=== PATIENT | male | born 1970 | race Native Hawaiian/Other Pacific Islander ===

== ENCOUNTER 2021-05-21 19:58 | Inpatient (IN) | payer BC, SELFPAY ==
[2021-05-21 20:20] VITALS: BP 116/83; PULSE 90; RESP 18; TEMP 37.1; O2SAT 97; BMI 24.8
--- NOTE | 2021-05-21 20:35 | ED.C_ITS ---
HPI - Psych General: Chief Complaint: Psychiatric Symptoms Stated Complaint: Psyciatric Symptons Time Seen by Provider: 05/21/21 20:25 Source: patient Mode of arrival: ambulatory Limitations: no limitations History of Present Illness: HPI Narrative: 50-year-old male has a history of bipolar disorder. He states he is been off his meds for quite some time and does not remember what he was taking he states he been having increasing racing thoughts and was driving today and just feeling get his mind straight he states he states been having very severe anger issues and homicidal thoughts. He states he feels like he does not get help he cannot harm himself or harm someone else. Associated symptoms: Reports depression and homicidal ideation Review of Systems Const: Denies: fever(s), chills, body aches or change in appetite Eyes: Denies: blurry vision or eye discomfort ENMT: Denies: throat pain or dental pain Card: Denies: chest pain Resp: Denies: dyspnea GI: Denies: abdominal pain, nausea, vomiting or diarrhea : Denies: dysuria Musc: Denies: neck pain or back pain Skin/Breast: Denies: rash Neuro: Denies: headache(s) Psych: Reports: anxiety, depression, mood swings and homicidal ideation David/Lymph: Denies: easy bruising All/Imm: Denies: urticaria PFS ED PFSH: Medical History (Updated 05/21/21 @ 21:42 by Red Chavira MD) Bipolar disorder Social History Substance/Drug Use: current Substance/Drug use frequency: other Physical Exam Const: COMMON NORMALS: patient oriented x3 and healthy appearing GENERAL APPEARANCE: anxious HENMT: COMMON NORMALS: normocephalic and atraumatic HEAD & SCALP: normocephalic and atraumatic Eye: COMMON NORMALS: Equal, round and reactive pupils present and EOMs intact bilaterally PUPIL: Yes Equal, round and reactive pupils present Neck/C-Spine: COMMON NORMALS: full ROM and supple Chest: COMMONS NORMALS: normal inspection of the chest and normal palpation of entire chest wall Resp: COMMON NORMALS: normal respiratory effort, No retractions, No use of accessory muscles and clear to auscultation bilaterally AUSCULTATION: clear to auscultation bilaterally Cardio: COMMON NORMALS: regular rate, regular rhythm and No murmurs present (Cardio) RATE: regular rate RHYTHM: regular rhythm GI: COMMON NORMALS: Normal to inspection, nondistended, normoactive bowel sounds present, Soft to palpation, non-tender and no masses PALPATION: Yes Soft to palpation Extremity: COMMON NORMALS: normal to inspection and full ROM Neuro: COMMON NORMALS: patient oriented x3, moves all extremities and no focal motor deficits Psych: COMMON NORMALS: mental status grossly normal and cooperative THOUGHT PROCESS: disorganized THOUGHT CONTENT: Yes Homicidality present Skin: COMMON NORMALS: no rashes or lesions noted and no wounds GENERAL SKIN EXAM: no rashes or lesions noted Course Vital Signs: Vital signs: Vital Signs Temperature 98.7 F 05/21/21 20:20 Pulse Rate 90 05/21/21 20:20 Respiratory Rate 18 05/21/21 20:20 Blood Pressure 116/83 05/21/21 20:20 Pulse Oximetry 97 05/21/21 20:20 MDM - Psych MDM Narrative: Medical decision making narrative: Patient presents with homicidal ideation along with history of bipolar disorder not been taking his meds patient placed on a 96-hour hold is medically cleared I spoke to psychiatrist and will admit. Lab Data: Labs: Lab Results 05/21/21 05/21/21 05/21/21 21:03 21:15 21:15 WBC 8.9 10^3/uL 10^3/ uL (4.0-10.0) RBC 4.95 10^6/uL 10^6 /uL (4.1-5.3) Hgb 15.0 g/dL g/dL (11.7-16.6) Hct 45.2 % % (42.0-52.0) MCV 91.3 fl fl (80-94) MCH 30.3 pg pg (28.0-34.0) MCHC 33.2 g/dL g/dL (30.0-36.0) RDW 12.5 % % (12.1-15.1) Plt Count 330 10^3/cmm 10^3 /cmm (130-400) MPV 9.7 fL fL (7.4-10.4) Neut % (Auto) 53.8 % % Lymph % (Auto) 37.1 % % [place] % (Auto) 6.0 % % Eos % (Auto) 2.0 % % Baso % (Auto) 0.9 % % Neut # (Auto) 4.77 10^3/uL 10^3 /uL (1.8-7.7) Lymph # (Auto) 3.3 10^3/uL 10^3/ uL (0.8-4.8) [place] # (Auto) 0.5 10^3/uL 10^3/ uL (0.2-0.9) Eos # (Auto) 0.2 10^3/uL 10^3/ uL (0.0-0.8) Baso # (Auto) 0.1 10^3/uL 10^3/ uL (0.0-0.1) Nucleated RBC % (a uto) 0 % % Nucleated RBCs # 0.0 /100WBC /100W BC Sodium 135 mmol/L L mmol /L (136-145) Potassium 3.8 mmol/L mmol/L (3.5-5.1) Chloride 100 mmol/L mmol/L (98-107) Carbon Dioxide 24 mmol/L mmol/L (22-29) Anion Gap 14.8 (5-19) BUN 14 mg/dL mg/dL (6-20) Creatinine 0.8 mg/dL mg/dL (0.7-1.2) GFR Calculation 101.9 mL/min mL/m in (90-130) Glucose 78 mg/dL mg/dL (65-115) Calculated Osmolal ity 279 mOsm/kg L mOs m/kg (285-295) Calcium 8.8 mg/dL mg/dL (8.5-10.5) Total Bilirubin 0.2 mg/dL mg/dL (0.15-1.2) AST 13 U/L U/L (0-40) ALT 7 U/L U/L (0-41) Alkaline Phosphata se 92 IU/L IU/L (40-130) Total Protein 7.3 g/dL g/dL (6.6-8.7) Albumin 4.2 g/dL g/dL (3.5-5.2) Globulin 3.1 g/dL g/dL (1.3-4.6) Salicylates 1.2 mg/dL L mg/dL (3-10) Urine Opiates Scre en Negative ng/mL ng /mL (Negative) Acetaminophen < 5.0 ug/mL L ug/ mL (10-30) Ur Barbiturates Sc reen Negative ng/mL ng /mL (Negative) Ur Phencyclidine S crn Negative ng/mL ng /mL (Negative) Ur Amphetamines Sc reen Positive ng/mL H ng/mL (Negative) U Benzodiazepines Scrn Negative ng/mL ng /mL (Negative) Urine Cocaine Scre en Negative ng/mL ng /mL (Negative) U Marijuana (THC) Screen Positive ng/mL H ng/mL (Negative) Ethyl Alcohol < 10 mg/dL mg/dL (0-10) Discharge Plan Discharge Patient Disposition: Admitted As Inpatient Clinical Impression: Bipolar disorder, Homicidal ideation Condition: Stable Coding Level of Care Code ED Pulmonary Disease Specialist for Sandeep Fwwang Exam Comprehensive
[2021-05-21] MEDS: ziprasidone hcl 40 mg Capsule PO (21:04)
[2021-05-21] MEDS: LORazepam 2 mg Tablet PO (21:04)
[2021-05-21 21:18] LABS: Basophils # 0.1 10^3/uL (0.0-0.1); Basophils % 0.9 %; Eosinophils # 0.2 10^3/uL (0.0-0.8); Hematocrit 45.2 % (42.0-52.0); Lymphocytes # 3.3 10^3/uL (0.8-4.8); Lymphocytes % 37.1 %; Mean Corpuscular HGB Conc 33.2 g/dL (30.0-36.0); Mean Corpuscular Hemoglobin 30.3 pg (28.0-34.0); Mean Corpuscular Volume 91.3 fl (80-94); Mean Platelet Volume 9.7 fL (7.4-10.4); Monocytes # 0.5 10^3/uL (0.2-0.9); Neutrophils # 4.77 10^3/uL (1.8-7.7); Neutrophils % 53.8 %; Nucleated Red Blood Cells % 0 %; Platelet Count 330 10^3/cmm (130-400); Red Blood Count 4.95 10^6/uL (4.1-5.3); Red Cell Distribution Width 12.5 % (12.1-15.1); White Blood Count 8.9 10^3/uL (4.0-10.0)
[2021-05-21 21:21] LABS: Amphetamines Screen Urine Positive (Negative); Barbiturates Screen Urine Negative (Negative); Benzodiazepines Screen Urine Negative (Negative); Cocaine Screen Urine Negative (Negative); Opiate Screen Urine Negative (Negative); PCP Screen Urine Negative (Negative); THC Screen Urine Positive (Negative)
[2021-05-21 21:37] LABS: Alanine Aminotransferase 7 U/L (0-41); Albumin Level 4.2 g/dL (3.5-5.2); Alkaline Phosphatase 92 IU/L (40-130); Anion Gap 14.8 (5-19); Aspartate Amino Transferase 13 U/L (0-40); Blood Urea Nitrogen 14 mg/dL (6-20); Calcium 8.8 mg/dL (8.5-10.5); Carbon Dioxide 24 mmol/L (22-29); Chloride 100 mmol/L (98-107); Globulin 3.1 g/dL (1.3-4.6); Glomerular Filtration Rate 101.9 mL/min (90-130); Glucose 78 mg/dL (65-115); Osmolality Calculated 279 mOsm/kg (285-295); Potassium 3.8 mmol/L (3.5-5.1); Salicylate 1.2 mg/dL (3-10); Sodium 135 mmol/L (136-145); Total Bilirubin 0.2 mg/dL (0.15-1.2); Total Protein 7.3 g/dL (6.6-8.7)
[2021-05-21 21:39] LABS: Acetaminophen < 5.0 ug/mL (10-30); Alcohol Level < 10 mg/dL (0-10)
[2021-05-21 23:38] VITALS: PULSE 82; RESP 18; O2SAT 99
[2021-05-22 06:00] VITALS: RESP 16
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
[2021-05-22 14:00] VITALS: BP 116/83; PULSE 82; RESP 16; TEMP 37.1; O2SAT 99
[2021-05-22] MEDS: OXcarbazepine 300 mg Tablet PO (19:26)
[2021-05-22 21:02] VITALS: BP 89/57; PULSE 95; RESP 17; TEMP 36.7; O2SAT 98
[2021-05-23 06:00] VITALS: BP 93/60; PULSE 81; RESP 18; TEMP 36.7; O2SAT 97
[2021-05-23] MEDS: OXcarbazepine 300 mg Tablet PO ×2 (09:08→20:34)
--- NOTE | 2021-05-23 10:51 | W.PM.NPUPNS ---
Subjective NPU Subjective: Interval history: He says that he is doing better. He mostly talked about symptoms of anxiety. He says that his mind is always racing. Even when he is depressed his mind is racing. He says sometimes he sleeps well and sometimes he cannot. He frequently has a difficult time concentrating. He said that being old math that he knows how to cook helped his concentration so that he can focus on one thing at a time. He says this new stuff that they make is worthless and he will not take that. He gets angry very easily. He agreed to take the Trileptal and increase to 3 times a day tomorrow. He says that he is ready to go as soon as a longterm is found. Mental Status Exam MSE Comments: This is a 50-year old appropriate weight male who appears approximately his stated age and is in no acute distress. He is dressed in hospital scrubs. He was found sitting in the day room and was pleasant and cooperative with the evaluation psychomotor activity normal. Speech is at a regular rate and rhythm, normal volume, good articulation, not pressured. Alert, oriented X3 Attention and concentration mildly decreased because he was asleep. Memory is intact Mood is good. Affect is euthymic. Thought process is logical and goal-directed. Thought content: Denies auditory and visual hallucinations. No delusions or paranoia are noted. He denies suicidal or homicidal ideation today. Fund of knowledge is average. Insight and judgment appear to be poor. Impulse control is poor. Cognition: Patient Appearance: Disheveled/Poor Hygiene Level of Consciousness: Awake, Alert, Appropriate and Follows Commands Patient Cognition Impaired: No Ability to Follow Directions: Excellent Patient Orientation (long list): Person, Place, Time, Name and Age Hallucination Type: None Delusion Description: Not Present Thought Process: Appropriate Affect: Affect Description: Appropriate Depressive Symptoms: Hopelessness and Unhappiness Behavior: Patient Behavior: Appropriate Speech Pattern: Appropriate Vitals/I&O/Wt Last Vital Signs Temp 98.1 F 05/23/21 06:00 Pulse 81 05/23/21 06:00 Resp 18 05/23/21 06:00 BP 93/60 05/23/21 06:00 Pulse Ox 97 05/23/21 06:00 Weight last 48 hrs Weight 65.589 kg Data NPU : 05/21/21 21:15 05/21/21 21:15 A&P Assessment and plan (1) Bipolar disorder: Status: Acute (2) Homicidal ideation: Status: Acute Plan This is a 50-year old homeless male who reports a past history of bipolar disorder reports concerns about anger and homicidal thoughts Plan: 1. We will increase Trileptal 300 mg 3 times a day and trazodone as needed at bedtime 2. Continue every 15 minute checks for safety. 3. Encourage individual, group and milieu therapies. 4. Encourage sober living treatment after discharge at the highest level of care to which he is willing to commit. 5. We will monitor for safety for himself in the community prior to discharge. Involuntary Hold Information 96 Hour Hold: 96 Hour Involuntary Admission: Yes Attestations NPU Medical Necessity Statement*: Inpatient hospitalization is medically necessary and the clinically appropriate intervention at this time. We will initiate medications and make changes as indicated. Coding Level of Care Code Acute Fruit Shipper for Sandeep Hernandez Diagnoses Bipolar disorder F31.9 Homicidal ideation R45.850
[2021-05-23 13:33] VITALS: BP 109/63; PULSE 80; RESP 16; TEMP 36.6; O2SAT 99
[2021-05-23 21:06] VITALS: BP 108/71; PULSE 79; RESP 17; TEMP 36.1; O2SAT 99
[2021-05-24 06:00] VITALS: BP 97/51; PULSE 80; RESP 18; TEMP 36.5; O2SAT 98
[2021-05-24] MEDS: OXcarbazepine 300 mg Tablet PO ×3 (08:53→22:20)
--- NOTE | 2021-05-24 13:01 | P.NPUPN_ITS ---
Subjective NPU Subjective: Interval history: Patient presents today reporting that he is doing better and feeling less angry compared to admission. He reports that his medication is working really well and he is denying any current problems. We discussed the likely discharge tomorrow for him to return to [place] and attempt to manage things from there. We discussed that we would need to navigate his insurance from the standpoint of getting the medication but we will figure it out by the morning. He reports he is eating and sleeping better and is optimistic about things really improving. Mental Status Exam MSE Comments: This is a well-nourished well-developed male with hospital scrubs on with adequate grooming and eye contact. No abnormal movements. Cooperative with exam in no acute distress. Speech was normal rate and volume. Mood described as better, affect congruent. Thought process organized. Thought content: Patient denied suicidal or homicidal ideations, there were no delusions reported or noted, he denied any auditory or visual hallucinations. Attention and concentration appeared intact and memory appeared reliable but none were formally tested. He is alert and oriented x3. Insight and judgment appear fair impulse control is improving. Vitals/I&O/Wt Last Vital Signs Temp 97.7 F 05/24/21 06:00 Pulse 80 05/24/21 06:00 Resp 18 05/24/21 06:00 BP 97/51 05/24/21 06:00 Pulse Ox 98 05/24/21 06:00 Data NPU : 05/21/21 21:15 05/21/21 21:15 A&P Assessment and plan (1) Bipolar disorder: Status: Acute (2) Homicidal ideation: Status: Acute Plan Plan This is a 50-year old homeless male who reports a past history of bipolar disorder reports concerns about anger and homicidal thoughts Plan: 1.?Continue Trileptal 300 mg 3 times a day and trazodone as needed at bedtime 2.? Continue every 15 minute checks for safety. 3.? Encourage individual, group and milieu therapies. 4.? Encourage sober living treatment after discharge at the highest level of care to which he is willing to commit. 5.? We will monitor for safety and plan for discharge in the morning. Involuntary Hold Information 96 Hour Hold: 96 Hour Involuntary Admission: Yes Attestations NPU Medical Necessity Statement*: Inpatient hospitalization is medically necessary and the clinically appropriate intervention at this time.? We will initiate medications and make changes as indicated. Likely length of stay 1 to 3 days. Coding Level of Care Code Acute Footwear Factory Worker for [facility] Fwd Diagnoses Bipolar disorder F31.9 Homicidal ideation R45.850
[2021-05-24 14:00] VITALS: BP 114/66; PULSE 88; RESP 16; O2SAT 97
[2021-05-24 21:09] VITALS: BP 123/83; PULSE 71; RESP 17; TEMP 36.4; O2SAT 99
[2021-05-25 05:40] VITALS: BP 109/74; PULSE 76; RESP 17; TEMP 36.7; O2SAT 98
[2021-05-25] MEDS: OXcarbazepine 300 mg Tablet PO (08:58)
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
[2021-05-25] MEDS: nicotine 2 mg Gum BUCCAL (10:12)
[2021-05-25 10:28] VITALS: BP 109/74; PULSE 76; RESP 17; TEMP 36.7; O2SAT 98
== END 2021-05-25 12:39 | disposition home or self-care (01) | DRG 885 ==
LOC: ER 21:42 → NP 22:06
PROVIDERS: Admitting Provider Psychiatry & Neurology Psychiatry; Emergency Provider Emergency Medicine; Visit Provider Psychiatry & Neurology Psychiatry
DX: F31.9 Bipolar disorder, unspecified (principal); R45.850 Homicidal ideations; Z59.01 Sheltered homelessness
CPT/HCPCS: 80053; 80306; 80307; 85025; 97150; 97165; 99285